=== PATIENT | female | born 1975 | race Caucasian/White ===

== ENCOUNTER 2018-06-19 14:59 | Outpatient (CLI) | payer BC ==
--- NOTE | 2018-06-19 15:41 | RAD ---
CERVICAL SPINE FOUR VIEWS: History: Neck pain. FINDINGS: Disc space narrowing at the C3-4 and C5-6 levels. Minimal degenerative retrolisthesis at these levels . Osteophytosis throughout the vertebral bodies and facets. Vertebral body heights are maintained. Ce rvicothoracic junction is intact. No acute fracture, dislocation, or aggressive osseous erosions. IMPRESSION: Prominent degenerative changes cervical spine. No acute osseous abnormalities are demonstrated. POS: [facility]
--- NOTE | 2018-06-19 16:21 | RAD ---
LUMBAR SPINE TWO VIEWS: History: Chronic back pain. FINDINGS/IMPRESSION: Mild degenerative changes are present. No fracture, subluxation, or bony destruction identified. POS: [facility]
== END 2018-06-19 15:00 | disposition home or self-care (01) ==
LOC: BICRAD 14:59
PROVIDERS: ATTEND Chiropractor
DX: M54.2 Cervicalgia (principal); M54.5 Low back pain; M47.812 Spondylosis without myelopathy or radiculopathy, cervical region; M47.816 Spondylosis without myelopathy or radiculopathy, lumbar region
CPT/HCPCS: 72040; 72100

== ENCOUNTER 2021-12-29 09:52 | Outpatient (CLI) | payer BC | END 2021-12-29 09:53 | disposition home or self-care (01) | LOC: SCSRAD 09:52 | PROVIDERS: ATTEND Chiropractor | DX: M54.50 Low back pain, unspecified (principal) | CPT/HCPCS: 72100 ==

== ENCOUNTER 2022-11-23 12:20 | Outpatient (CLI) | payer BC | END 2022-11-23 12:21 | disposition home or self-care (01) | LOC: TBSIIMAG 12:20 | PROVIDERS: ATTEND Chiropractor | DX: M51.17 Intervertebral disc disorders with radiculopathy, lumbosacral region (principal); R29.890 Loss of height; M51.36 Other intervertebral disc degeneration, lumbar region; M48.061 Spinal stenosis, lumbar region without neurogenic claudication | CPT/HCPCS: 72148 ==